=== PATIENT | female | born 1995 | race American Indian/Alaskan Native ===

== ENCOUNTER 2022-07-22 12:34 | Outpatient (CLI) | payer MEDICAID ==
--- NOTE | 2022-07-22 14:28 | XRay Report ---
CHEST 2 VIEWS INDICATION / CLINICAL INFORMATION: E66.01 OBESITY Z01.818 ENCOUNTER FOR OTHER EXAMINATION. COMPARISON: None available. FINDINGS: SUPPORT DEVICES: None. HEART / MEDIASTINUM: No significant abnormality. LUNGS / PLEURA: No significant pulmonary or pleural abnormality. No pneumothorax. ADDITIONAL FINDINGS: No significant additional findings. IMPRESSION: 1. No acute findings. Signer Name: Evaristo Peck Jr, MD Signed: 07/22/2022 2:24 PM Workstation Name: [id number]
--- NOTE | 2022-07-22 14:29 | Fluoroscopy Report ---
BARIUM SWALLOW Indication: E66.01. Dysphagia, morbid obesity. Technique: Single and double contrast barium technique utilized to evaluate the esophagus. FINDINGS: To begin the exam, swallowing was evaluated in the lateral position under direct fluorosco py. Swallowing was normal. No mucosal irregularity, mass, mass effect, or critical stenosis. There were no abnormal tertiary c ontractions as seen with dysmotility. No gastroesophageal reflux. IMPRESSION: Unremarkable exam. Fluoroscopic time: 0.9 minutes Number of fluoroscopic images: 26 Signer Name: Evaristo Peck Jr, MD Signed: 07/22/2022 2:24 PM Workstation Name: [id number]
== END 2022-07-22 12:35 | disposition home or self-care (01) ==
LOC: FLUORO 12:34
PROVIDERS: ATTEND Surgery
DX: Z01.818 Encounter for other preprocedural examination (principal); E66.01 Morbid (severe) obesity due to excess calories; E55.9 Vitamin D deficiency, unspecified; K30 Functional dyspepsia
CPT/HCPCS: 36415; 71046; 74220; 82306